=== PATIENT | male | born 1955 | race Caucasian/White ===

== ENCOUNTER 2022-08-16 07:06 | Day surgery (SDC) | payer MEDICARE, OTHER ==
[2022-08-15 11:17] LABS: COVID AG,FIA SOURCE NASAL SWAB
[~2022-08-16] VITALS: Ht 160 cm; Wt 55.4 kg
[~2022-08-16 07:06] MED LIST: ASCO500 PO; ASPI-1444 PO; CALC-451 PO; CYCLOPENTOLATE HCL 1% 2 ML OPHTHALMIC SOLUTION ONE; DIVA125C20 PO; FERR325T27 PO; KETOROLAC TROMETHAMINE 0.5% 5 ML OPHTHALMIC SOLUTION ONE; LACT1CAP90 PO; LEVE500T20 PO; MELA3TAB89 PO; METO25 PO; MOXIFLOXACIN HCL 0.5% 3 ML OPHTHALMIC SOLUTION ONE; MULT-248 PO; PARO10TA89 PO; PHENYLEPHRINE HCL 2.5% 2 ML OPHTHALMIC SOLUTION ONE; RINGERS SOLUTION,LACTATED 500 ML IV ONE; TETRACAINE HCL/PF 0.5% 4 ML OPHTHALMIC SOLUTION OD ONE; TETRACAINE HCL/PF 0.5% 4 ML OPHTHALMIC SOLUTION ONE; TRAZ-252 PO; TROPICAMIDE 1% 2 ML OPHTHALMIC SOLUTION ONE
[2022-08-16] MEDS ORDERED: PROPOFOL 1% 20 ML VIAL IVP ONE (07:07)
[2022-08-16] MEDS ORDERED: ROCURONIUM BROMIDE 10 MG/ML 5 ML VIAL IVP ONE (07:07)
[2022-08-16] MEDS ORDERED: ONDANSETRON HCL 4 MG/2 ML VIAL IVP ONE (07:07)
[2022-08-16] MEDS ORDERED: BALANCED SALT 15 ML OPHTHALMIC IRRIG.SOLN IO ONE (07:07)
[2022-08-16] MEDS ORDERED: LIDOCAINE/PF 1% 2 ML VIAL CAUDAL ONE (07:07)
[2022-08-16] MEDS ORDERED: NEOMYCIN/POLYMYXIN B/DEXAMETH 3.5 GM OPHTHALMIC OINTMENT OD ONE (07:07)
[2022-08-16] MEDS ORDERED: POVIDONE-IODINE 5% 30 ML OPHTHALMIC SOLUTION OD ONE (07:07)
[2022-08-16] MEDS ORDERED: PrednisoLONE ACETATE 1% 5 ML OPHTHALMIC SUSPENSION AD ONE (07:07)
[2022-08-16] MEDS ORDERED: EPINEPHrine 1:1,000 [1 MG/ML] VIAL ET ONE (07:07)
[2022-08-16] MEDS ORDERED: HYALURONATE SOD/CHONDROITIN SOD 0.5 ML VIAL IO ONE (07:07)
[2022-08-16] MEDS ORDERED: LIDOCAINE/PF 2% 5 ML VIAL IM ONE (07:07)
[2022-08-16] MEDS ORDERED: HYALURONATE SOD 8.5MG/0.85ML 10 MG/ML SYRINGE IO ONE (07:07)
[2022-08-16] MEDS ORDERED: MIDAZOLAM HCL 2 MG/2 ML VIAL IVP ONE (07:07)
[2022-08-16] MEDS ORDERED: TETRACAINE HCL/PF 0.5% 4 ML OPHTHALMIC SOLUTION OD ONE (07:07)
[2022-08-16] MEDS ORDERED: 0.9% SODIUM CHLORIDE 10 ML VIAL IVP ONE (07:07)
[2022-08-16] MEDS ORDERED: EPHEDrine SULFATE 50 MG/ML VIAL IM ONE (07:07)
[2022-08-16] MEDS ORDERED: FentaNYL CITRATE PF 100 MCG/2 ML VIAL IVP ONE (07:07)
[2022-08-16] MEDS: KETOROLAC TROMETHAMINE 0.5% 5 ML OPHTHALMIC SOLUTION OD SCH ×3 (07:40→07:52)
[2022-08-16] MEDS: TETRACAINE HCL/PF 0.5% 4 ML OPHTHALMIC SOLUTION OD SCH ×3 (07:41→07:53)
[2022-08-16] MEDS: TROPICAMIDE 1% 2 ML OPHTHALMIC SOLUTION OD SCH ×3 (07:41→07:52)
[2022-08-16] MEDS: PHENYLEPHRINE HCL 2.5% 2 ML OPHTHALMIC SOLUTION OD SCH ×3 (07:41→07:52)
[2022-08-16] MEDS: MOXIFLOXACIN HCL 0.5% 3 ML OPHTHALMIC SOLUTION OD SCH ×3 (07:41→07:53)
[2022-08-16] MEDS: CYCLOPENTOLATE HCL 1% 2 ML OPHTHALMIC SOLUTION OD SCH ×3 (07:41→07:52)
== END 2022-08-16 11:15 | disposition home or self-care (01) ==
LOC: SURGERY 07:06
PROVIDERS: ATTEND Ophthalmology
DX: H25.11 Age-related nuclear cataract, right eye (principal); F32.9 Major depressive disorder, single episode, unspecified; G31.84 Mild cognitive impairment of uncertain or unknown etiology; K21.9 Gastro-esophageal reflux disease without esophagitis; M19.90 Unspecified osteoarthritis, unspecified site; D64.9 Anemia, unspecified; I10 Essential (primary) hypertension; G40.509 Epileptic seizures related to external causes, not intractable, without status epilepticus; Z79.899 Other long term (current) drug therapy; Z98.890 Other specified postprocedural states; Z20.822 Contact with and (suspected) exposure to COVID-19; Z87.891 Personal history of nicotine dependence
CPT/HCPCS: 93005; 87426; 66984; C9803; J2704; J3490 ×4; J0171; J3010; J2250; J2405; Q9967; J7120; V2632